=== PATIENT | male | born 1940 | race Caucasian/White ===

== ENCOUNTER → 2018-08-18 | Outpatient (CLI) | payer MEDICARE, OTHER ==
--- NOTE | 2018-08-18 11:56 | RAD ---
EXAM: Chest, 2 views. HISTORY: Pain. Cough. COMPARISON: 05/21/2016 FINDINGS: 2 views of the chest are obtained. There is no infiltrate, pleural effusion or pneumothorax. The heart is normal in size. There is a tortuous thoracic aorta. There are healed rib fractures. IMPRESSION: No acute pulmonary finding. Electronically signed by: Vickie Maldonado MD (08/18/2018 11:54 AM) [id number]
== END | disposition home or self-care (01) ==
LOC: PMG 11:24
PROVIDERS: ATTEND Physician Assistant
DX: R05 Cough (principal); R07.9 Chest pain, unspecified; R09.89 Other specified symptoms and signs involving the circulatory and respiratory systems
CPT/HCPCS: 71046